=== PATIENT | female | born 2000 | race Caucasian/White ===

== ENCOUNTER 2022-02-02 22:05 | Emergency (ER) | payer OTHER ==
[~2022-02-02] VITALS: Ht 167.6 cm; Wt 70.3 kg
--- NOTE | 2022-02-02 22:10 | PHYS DOC ---
Adult General HPI HPI Patient is a 21-year-old female who presents with a chief complaint of possible allergic reaction. States she is in the [employer] and was out in the field in [place] ago on Tuesday and ever since then has had hives popping up on her. States they will come in certain areas itch for a while and then go away and pop up in different areas. Denies any headache, lightheadedness, pain or trouble swallowing, swollen lips or tongue, shortness of breath or wheeze, abdominal pain, nausea, vomiting, diarrhea. States she took some Benadryl earlier in the morning this morning but nothing else. States she is eat and drink normally. States she is making urine and stool normally for her. Review of Systems Review of Systems Review of systems otherwise unremarkable except noted in HPI Physical Exam Physical Exam Constitutional: Well developed, well nourished, no acute distress, non-toxic appearance. [] HENT: Normocephalic, atraumatic, oropharynx moist, no oral exudates, nose normal. [] Eyes: conjunctiva normal, no discharge. [] Neck: Normal range of motion, no tenderness, supple, no stridor. [] Cardiovascular:Heart rate regular rhythm, no murmur [] Lungs & Thorax: Bilateral breath sounds clear to auscultation [] Abdomen: soft, no tenderness, no masses, no pulsatile masses. [] Skin: Warm, dry, scattered urticaria on forearms and abdomen Extremities: No tenderness, no cyanosis, no clubbing, ROM intact, no edema. [] Neurologic: Alert and oriented X 3, no focal deficits noted. [] Psychologic: Affect normal, judgement normal, mood normal. [] EKG EKG [] Radiology/Procedures Radiology/Procedures [] Heart Score C/O Chest Pain: No Risk Factors: Risk Factors: DM, Current or recent (<one month) smoker, HTN, HLP, family history of CAD, obesity. Risk Scores: Risk Factors: DM, Current or recent (<one month) smoker, HTN, HLP, family history of CAD, obesity. Course & Med Decision Making Course & Med Decision Making Patient is a 21-year-old female presents with a chief complaint of possible zia rgic reaction Vital signs not concerning. Physical exam noted above. Given dexamethasone and Benadryl. Discussed symptom management at home. Discussed triggers. Advised to follow-up with primary care physician in the morning Gave return precautions to the ED. Patient grateful, verbalized understanding and agreed with plan of discharge. [] Dragon Disclaimer Dragon Disclaimer This electronic medical record was generated, in whole or in part, using a voice recognition dictation system. Departure Departure: Impression: Primary Impression: Hives Disposition: HOME / SELF CARE / HOMELESS Condition: STABLE Referrals: PCP,UNKNOWN (PCP) MADISYN BEAUCHAMP Patient Instructions: Hives Additional Instructions: Thank you for coming into the emergency department tonight and allowing us to take care of you. Please read the attached information carefully to go over things we discussed. You can continue your Benadryl or other allergy medicine every 6 hours or as indicated on packaging. Please do not take hot showers or get in the sun as this could exacerbate. Please take cool short showers. You can use Vaseline or other lotions for topical. Follow-up with your primary care physician in the morning to update on ED visit. Please come back with new or concerning symptoms as we discussed. PRECIOUS DOLAN MD Feb 02, 2022 22:10
[2022-02-02 22:15] VITALS: BP 149/97
[2022-02-02] MEDS ORDERED: diphenhydrAMINE HCL 25 MG CAPSULE PO ONE (23:00)
[2022-02-02] MEDS ORDERED: DEXAMETHASONE 4 MG TABLET PO ONE (23:00)
== END 2022-02-02 22:42 | disposition home or self-care (01) ==
LOC: ER 22:05
DX: L50.9 Urticaria, unspecified (principal)
CPT/HCPCS: 99283; J8540; Q0163